=== PATIENT | male | born 1950 | race Caucasian/White ===

== ENCOUNTER 2017-10-15 11:33 | Inpatient (IN) | payer MEDICARE, MEDICAID ==
[~2017-10-15] VITALS: Ht 170.2 cm; Wt 85.0 kg
--- NOTE | ~2017-10-15 | EC ---
PATIENT:JACK LOWE DATE OF SERVICE: 10/15/17 SEX: M MEDICAL RECORD: [id number] DATE OF : [birth year] LOCATION:D.M2 D.210 AGE OF PATIENT: 67 ADMISSION DATE: 10/15/17 REFERRING PHYSICIAN: INTERPRETING PHYSICIAN: CADEN GAYTAN MD ECHOCARDIOGRAM REPORT ECHO CHARGES 4 ECHO COMPLETE Date: 10/16 CLINICAL DIAGNOSIS: CHF HX CAD/CABG/DM ECHOCARDIOGRAPHIC MEASUREMENTS (adult normal given) AC root (d.<3.7cm) 3.8 cm LV Septum d (<1.2 cm> 1.6 cm Valve Excursion 2.2 cm LV Septum (systole) 1.8 cm Left Atria (s.<4.0cm> 4.2 cm LVPW d(<1.2cm) 1.9 cm RV (d.<2.3cm) 4.1 cm LVPW (sytole) 2.1 cm LV diastole(<5.6CM) 4.5 cm MV E-F(>70mm/sec) cm LV systole 3.5 cm LVOT Diameter 1.9 cm MV exc.(>10mm) 1.9 cm Est.ejection fraction (50-75%) % DOPPLER: LVIT cm/sec A 83.0 cm/sec E 68.0 cm/sec LA cm/sec RVSP 27 mmHg LVOT 135 cm/sec AOP1/2T m/s Asc. Ao 178 cm/sec RVOT cm/sec RA cm/sec PA cm/sec AV Gradient Peak 12.74mmHg AV Mean 6.79 mmHg AV Area 2.2 cm MV Gradient Peak 3.17 mmHg MV Mean 1.30 mmHg MV Area cm COMMENTS: [employer] Order Filler: Jamison RICK [employer] Knitting Machine Operator: 1 Dr. Gaytan TAPE# PACS Pericardial Effusion N DATE OF SERVICE: 10/17/2017 ECHOCARDIOGRAM FINDINGS: 1. Left ventricular chamber size is within normal limits. Left ventricular systolic function is normal. Overall ejection fraction estimated at 55% to 60%. 2. Left atrium is enlarged at 4.2 cm. Right atrium and right ventricle chamber sizes are as well mildly dilated. 3. Valvular structures have normal structure and motion. ECHOCARDIOGRAM REPORT [id number] JACK LOWE 4. Doppler interrogation reveals trace mitral regurgitation, trace tricuspid regurgitation, no other valvular insufficiency or stenosis. Pulmonary systolic pressure is estimated at 27 mmHg. 5. No evidence of pericardial effusion or left ventricular thrombus. TRANSINT:[id number] Voice Confirmation ID: [id number] DOCUMENT ID: [id number] CADEN GAYTAN MD at 1403 CC: [id number] DICTATION DATE: 10/17/17 1103 INTERVENTION TEACHER: 10/17/17 1255 DIS IN 10/18/17 [place] [id number] [place] [id number]
[2017-10-15 15:14] VITALS: BP 144/77; Ht 170.2 cm; Wt 85.0 kg
[2017-10-15 15:28] LABS: ALBUMIN 3.3 g/dL (3.4-5.0); ALKALINE PHOSPHATASE 88 U/L (46-116); ALT (SGPT) 37 U/L (10-68); BILIRUBIN - TOTAL 0.63 mg/dL (0.2-1.3); CALC OSMOLALITY 268 mosm/kg (275-300); CALCIUM 8.8 mg/dL (8.5-10.1); CARBON DIOXIDE 20.5 mmol/L (21.0-32.0); CHLORIDE - SERUM 100 mmol/L (98-107); CREATININE - SERUM 0.6 mg/dL (0.6-1.3); GLUCOSE 123 mg/dL (74-106); MAGNESIUM - SERUM 1.3 mg/dL (1.8-2.4); POTASSIUM - SERUM 3.6 mmol/L (3.5-5.1); PROTEIN - SERUM 7.4 g/dL (6.4-8.2); SODIUM 135 mmol/L (136-145); UREA NITROGEN 6 mg/dL (7-18); eGFR NON AFRICAN AMERICAN > 90 mL/min (90-120)
[2017-10-15] MEDS ORDERED: FUROSEMIDE20 MG PO (16:11)
[2017-10-15] MEDS ORDERED: ZOCOR20 MG PO (16:12)
[2017-10-15] MEDS ORDERED: METOPROLOL TART50 MG PO (16:12)
[2017-10-15] MEDS ORDERED: GLUCOPHAGE850 MG PO (16:14)
[2017-10-15] MEDS ORDERED: LISINOPRIL10 MG PO (16:14)
[2017-10-15] MEDS ORDERED: GEMFIBROZIL600 MG PO (16:14)
[2017-10-15] MEDS ORDERED: OMEPRAZOLE20 M1 PO (16:14)
[2017-10-15] MEDS ORDERED: FLUTICASONE PRO16 GM NASAL (16:15)
[2017-10-15] MEDS ORDERED: HYDROCODONE-APA1 TAB PO (16:16)
[2017-10-15] MEDS ORDERED: ISOSORBIDE DINI30 MG PO (16:17)
[2017-10-15 18:55] LABS: APPEARANCE CLEAR (CLEAR); BILIRUBIN NEGATIVE (NEGATIVE); COLOR YELLOW (YELLOW); GLUCOSE NEGATIVE (NEGATIVE); KETONE NEGATIVE (NEGATIVE); NITRITE NEGATIVE (NEGATIVE); PROTEIN NEGATIVE (NEGATIVE); UROBILINOGEN NORMAL (NORMAL)
[2017-10-15 20:00] VITALS: BP 168/96
[2017-10-16] VITALS: BP 125/62
[2017-10-16 04:00] VITALS: BP 123/70
[2017-10-16 05:26] LABS: BASOPHILS 0.6 % (0-2); EOSINOPHILS 3.5 % (0-7); HEMATOCRIT 35.7 % (42.0-54.0); HEMOGLOBIN 12.2 g/dL (13.5-17.5); IMMATURE GRANULOCYTES 0.4 % (0-5); LYMPHOCYTES 29.2 % (15-50); MCH 29.6 pg (26.0-34.0); MCHC 34.2 g/dL (31.0-37.0); MCV 86.7 fL (80.0-100.0); MEAN PLATELET VOLUME 9.3 fL (7.4-10.4); MONOCYTES 10.9 % (2-11); NEUTROPHILS 55.4 % (40-80); PLATELET COUNT 135 10x3/uL (130-400); RBC 4.12 10x6/uL (4.20-6.10); RDW 13.8 % (11.5-14.5); WBC 4.9 10x3/uL (4.8-10.8)
[2017-10-16 06:03] LABS: ALKALINE PHOSPHATASE 103 U/L (46-116); ALT (SGPT) 31 U/L (10-68); CALC OSMOLALITY 274 mosm/kg (275-300); CALCIUM 8.5 mg/dL (8.5-10.1); CARBON DIOXIDE 28.6 mmol/L (21.0-32.0); CHLORIDE - SERUM 102 mmol/L (98-107); CREATINE KINASE 35 UL (21-232); CREATININE - SERUM 0.6 mg/dL (0.6-1.3); GLUCOSE 131 mg/dL (74-106); MAGNESIUM - SERUM 1.5 mg/dL (1.8-2.4); PHOSPHOROUS 3.1 mg/dL (2.5-4.9); POTASSIUM - SERUM 3.7 mmol/L (3.5-5.1); PRO BNP 504 pg/mL (0-125); PROTEIN - SERUM 6.6 g/dL (6.4-8.2); SODIUM 137 mmol/L (136-145); TROPONIN-I 0.016 ng/mL (0.000-0.060); UREA NITROGEN 10 mg/dL (7-18); eGFR NON AFRICAN AMERICAN > 90 mL/min (90-120)
[2017-10-16 07:59] VITALS: BP 135/76
[2017-10-16 11:48] VITALS: BP 105/62
[2017-10-16 15:46] VITALS: BP 106/55
[2017-10-16 20:28] VITALS: BP 110/62
[2017-10-17 01:30] VITALS: BP 137/78
[2017-10-17 04:00] VITALS: BP 132/69
[2017-10-17 05:49] LABS: BASOPHILS 0.4 % (0-2); EOSINOPHILS 3.4 % (0-7); HEMATOCRIT 35.9 % (42.0-54.0); HEMOGLOBIN 12.1 g/dL (13.5-17.5); IMMATURE GRANULOCYTES 0.4 % (0-5); LYMPHOCYTES 25.2 % (15-50); MCH 29.6 pg (26.0-34.0); MCHC 33.7 g/dL (31.0-37.0); MCV 87.8 fL (80.0-100.0); MEAN PLATELET VOLUME 9.2 fL (7.4-10.4); MONOCYTES 10.5 % (2-11); NEUTROPHILS 60.1 % (40-80); PLATELET COUNT 134 10x3/uL (130-400); RBC 4.09 10x6/uL (4.20-6.10); WBC 5.4 10x3/uL (4.8-10.8)
[2017-10-17 06:30] LABS: % SATURATION 17 % (15-55); IRON 67 ug/dl (35-150); TOTAL IRON BIND CAPACITY 373 ug/dl (260-445); UNSAT IRON BIND CAPACITY 306 ug/dl (150-375)
[2017-10-17 06:38] LABS: CALC OSMOLALITY 276 mosm/kg (275-300); CALCIUM 8.7 mg/dL (8.5-10.1); CARBON DIOXIDE 29.9 mmol/L (21.0-32.0); CHLORIDE - SERUM 102 mmol/L (98-107); CREATININE - SERUM 0.7 mg/dL (0.6-1.3); FERRITIN 103 ng/mL (3-244); GLUCOSE 131 mg/dL (74-106); POTASSIUM - SERUM 3.8 mmol/L (3.5-5.1); SODIUM 138 mmol/L (136-145); THYROID STIMULATING HORMONE 2.33 uIU/mL (0.36-3.74); UREA NITROGEN 9 mg/dL (7-18); eGFR NON AFRICAN AMERICAN > 90 mL/min (90-120)
[2017-10-17 07:44] VITALS: BP 130/69
[2017-10-17 10:20] LABS: IMMUNOGLOBULIN A 212 mg/dL (61-437); IMMUNOGLOBULIN G 939 mg/dL (700-1600)
[2017-10-17 11:43] VITALS: BP 136/79
[2017-10-17 15:24] VITALS: BP 104/40
[2017-10-17 20:00] VITALS: BP 176/68
[2017-10-18 00:54] VITALS: BP 154/64
[2017-10-18 03:58] LABS: BASOPHILS 0.7 % (0-2); EOSINOPHILS 3.1 % (0-7); HEMATOCRIT 33.6 % (42.0-54.0); HEMOGLOBIN 11.5 g/dL (13.5-17.5); IMMATURE GRANULOCYTES 0.2 % (0-5); LYMPHOCYTES 25.8 % (15-50); MCH 29.8 pg (26.0-34.0); MCHC 34.2 g/dL (31.0-37.0); MEAN PLATELET VOLUME 9.2 fL (7.4-10.4); MONOCYTES 13.1 % (2-11); NEUTROPHILS 57.1 % (40-80); PLATELET COUNT 110 10x3/uL (130-400); RBC 3.86 10x6/uL (4.20-6.10); RDW 13.7 % (11.5-14.5); WBC 4.5 10x3/uL (4.8-10.8)
[2017-10-18 04:00] VITALS: BP 142/67
[2017-10-18 04:09] LABS: CALC OSMOLALITY 274 mosm/kg (275-300); CALCIUM 8.4 mg/dL (8.5-10.1); CARBON DIOXIDE 28.5 mmol/L (21.0-32.0); CHLORIDE - SERUM 103 mmol/L (98-107); CREATININE - SERUM 0.6 mg/dL (0.6-1.3); GLUCOSE 112 mg/dL (74-106); POTASSIUM - SERUM 3.5 mmol/L (3.5-5.1); SODIUM 138 mmol/L (136-145); UREA NITROGEN 8 mg/dL (7-18); eGFR NON AFRICAN AMERICAN > 90 mL/min (90-120)
[2017-10-18 08:59] VITALS: BP 130/73
[2017-10-18] MEDS ORDERED: VIBRAMYCIN 100100 MG PO (10:02)
[2017-10-18] MEDS ORDERED: OMNICEF300 MG PO (10:02)
[2017-10-19 05:18] LABS: IMMUNOGLOBULIN E 18 IU/mL (0-100)
== END 2017-10-18 12:48 | disposition home or self-care (01) | DRG 177 ==
LOC: D.M2 11:33
PROVIDERS: Family Medicine; Internal Medicine Nephrology; Internal Medicine Pulmonary Disease
DX: J15.6 Pneumonia due to other Gram-negative bacteria (principal); I50.33 Acute on chronic diastolic (congestive) heart failure; J44.1 Chronic obstructive pulmonary disease with (acute) exacerbation; E87.2 Acidosis; J98.11 Atelectasis; J15.212 Pneumonia due to Methicillin resistant Staphylococcus aureus; E11.9 Type 2 diabetes mellitus without complications; I11.0 Hypertensive heart disease with heart failure; I25.10 Atherosclerotic heart disease of native coronary artery without angina pectoris; E78.5 Hyperlipidemia, unspecified; K21.9 Gastro-esophageal reflux disease without esophagitis; E78.00 Pure hypercholesterolemia, unspecified; G47.33 Obstructive sleep apnea (adult) (pediatric); E83.42 Hypomagnesemia; D64.9 Anemia, unspecified; Z86.73 Personal history of transient ischemic attack (TIA), and cerebral infarction without residual deficits; Z95.5 Presence of coronary angioplasty implant and graft; Z95.1 Presence of aortocoronary bypass graft; Z87.891 Personal history of nicotine dependence; E66.01 Morbid (severe) obesity due to excess calories; Z68.29 Body mass index [BMI] 29.0-29.9, adult